=== PATIENT | female | born 1980 | race African-American/Black ===

== ENCOUNTER 2020-05-16 18:28 | Emergency (ER) | payer OTHER ==
[~2020-05-16] VITALS: Ht 172.7 cm; Wt 104.3 kg
[2020-05-16] MEDS ORDERED: NOHOMEMEDICATIONS (20:35)
[2020-05-16 20:44] LABS: ABSOLUTE NEUTROPHILS 3.9 thou/uL (1.4-8.2); BASOPHILS 1.3 % (0.0-2.0); EOSINOPHILS 1.4 % (0.0-3.0); HEMATOCRIT 39.5 % (37.0-47.0); HEMOGLOBIN 13.3 gm/dL (12.0-15.0); LYMPHOCYTES 39.1 % (24.0-44.0); MCH 31.4 pg (26.0-34.0); MCHC 33.6 g/dL (28.0-37.0); MCV 93.6 fL (80.0-100.0); MONOCYTES 7.7 % (1.0-8.0); PLATELET COUNT 320 thou/uL (150-400); POLYS 50.5 % (36.0-66.0); RBC 4.22 mil/uL (4.20-5.00); RDW 13.8 % (10.5-14.5); WBC 7.7 thou/uL (4.0-11.0)
[2020-05-16 21:37] LABS: CALCIUM 8.9 mg/dL (8.5-10.1); CREATININE 0.8 mg/dL (0.6-1.0); POTASSIUM 3.7 mmol/L (3.5-5.1)
[2020-05-16 22:03] LABS: URINE BILIRUBIN NEGATIVE (Negative); URINE BLOOD NEGATIVE (Negative); URINE CLARITY CLEAR; URINE COLOR YELLOW; URINE GLUCOSE-RANDOM* NEGATIVE (Negative); URINE KETONES NEGATIVE (Negative); URINE LEUKOCYTES-REFLEX NEGATIVE (Negative); URINE NITRITE-REFLEX NEGATIVE (Negative); URINE PROTEIN (DIPSTICK) NEGATIVE (Negative); URINE SPECIFIC GRAVITY 1.015 (1.005-1.035); URINE UROBILINOGEN 0.2 E.U./dl (0.2-1.0)
[2020-05-16] MEDS ORDERED: ZOFRAN ODT4 MG PO (22:55)
[2020-05-16] MEDS ORDERED: BENTYL 10 MG CA10 M1 PO (22:55)
[2020-05-16 23:36] VITALS: BP 103/40
== END 2020-05-16 23:42 | disposition home or self-care (01) ==
LOC: ER 18:28
PROVIDERS: Emergency Medicine
DX: R11.2 Nausea with vomiting, unspecified (principal); R53.83 Other fatigue; R06.02 Shortness of breath; R51.9 Headache, unspecified; R68.83 Chills (without fever); J45.909 Unspecified asthma, uncomplicated; Z20.822 Contact with and (suspected) exposure to COVID-19; Z90.711 Acquired absence of uterus with remaining cervical stump